=== PATIENT | female | born 1955 | race Caucasian/White ===

== ENCOUNTER 2024-02-21 20:17 | Emergency (ER) | payer MEDICARE, OTHER, SELFPAY ==
[2024-02-21 20:21] VITALS: BP 114/69
[2024-02-21 20:23] VITALS: BP 114/69
[2024-02-21 20:25] VITALS: BMI 23.8
[2024-02-21 20:36] LABS: % Basophils 0.8 % (0-2); % Eosinophils 2.2 % (0-6); % Immature Granulocytes 0.2 % (0-0.5); % Lymphocytes 28.9 % (20.5-51.1); % Neutrophils 60.9 % (42.2-75.2); Absolute Basophils 0.1 10^3/uL (0-0.2); Absolute Eosinophils 0.2 10^3/uL (0-0.7); Absolute Lymphocytes 2.5 10^3/uL (1.2-3.4); Absolute Monocytes 0.6 10^3/uL (0.1-0.6); Absolute Neutrophils 5.2 10^3/uL (1.4-6.5); Hematocrit 37.2 % (37.0-47.0); Hemoglobin 12.6 g/dL (12.0-16.0); Mean Corp Hgb Conc. 33.9 g/dL (33.0-37.0); Mean Corpuscular Hgb 26.7 pg (27.0-31.0); Mean Corpuscular Volume 78.8 fL (81.0-99.0); Mean Platelet Volume 11.1 fL (7.4-10.4); Nucleated Red Blood Cells % 0 %; Platelet Count 196 10^3/uL (130-400); Red Blood Cell Count 4.72 10^6/uL (4.20-5.40); Red Cell Dist. Width 15.1 % (11.5-14.5); White Blood Cell Count 8.5 10^3/uL (4.8-10.8)
[2024-02-21] MEDS: NSS 1000 IV (20:43)
[2024-02-21 21:00] VITALS: BP 114/72
[2024-02-21 21:10] LABS: Blood Urea Nitrogen 21 mg/dl (7-17); Calcium 9.5 mg/dl (8.4-10.2); Carbon Dioxide 25 mmol/L (22-30); Chloride 108 mmol/L (98-107); Estimated Creatinine Clearance 47 ml/min; Glucose 147 mg/dl (70-99); Sodium 139 mmol/L (135-145); eGFR > 60.00
--- NOTE | 2024-02-21 23:07 | ED.GENMED ---
History of Present Illness
General
Chief Complaint: Fainting/Passed Out
Source: patient, spouse and family
Exam Limitations: none
Time Seen by Provider: 02/21/24 20:18
Nursing documentation reviewed up to this point in time: agreed with
History of Present Illness
History of Present Illness:
68-year-old female with history of hypertension and hyperlipidemia presents to the emergency room with her and daughter for evaluation after syncopal episode. Patient was at a green party with friends at home. She was seated in a chair drinking
wine and had a small bite of edible THC gummy. Shortly thereafter she began to feel lightheaded and family says she had a very brief syncopal episode where she became pale and somewhat diaphoretic� says that she may have passed out 'for a
second or 2.' They lowered patient to the ground she did not have any fall or secondary trauma. EMS called to bring her to the hospital. Here in the emergency room patient says she feels well and has no complaints aside from being fatigued. She
denies any associated chest pain, shortness of breath, palpitations. No headache or abdominal/flank pain.
Past History
Past History
ED Past Medical History: Other (Gastritis)
ED Past Surgical History: Cholecystectomy, Gynecological (Tubal ligation) and Other (Bilateral breast surgery, lumpectomy)
Social History
Tobacco: Non-smoker
Alcohol: None
Drug: None
Personal:
Review of Systems
Review of Systems
All Other Systems: ROS reviewed and negative except as documented in HPI and ROS
Constitutional: Reports fatigue; Denies fever or chills
Respiratory: Denies cough or trouble breathing
Cardiac: Reports syncope; Denies chest pain, diaphoresis or palpitations
ABD/GI: Denies abdominal pain, nausea or vomiting
: Denies flank pain
Musculoskeletal: Denies neck pain or back pain
Neurological: Denies dizzy or headache
Phy Exam
Physical Exam
Physical Exam:
General: Awake, alert; no acute distress
Head: Normocephalic, atraumatic
Eyes: Conjunctiva normal, pupils equal round and reactive to light bilaterally, extraocular movements intact
Throat: Airway intact, slightly dry mucous membranes, tongue atraumatic
Neck: Trachea midline, supple without meningismus
Lungs: Clear to auscultation bilaterally, no wheezing, rales, rhonchi
Heart: Regular rate and rhythm, no murmurs, gallops, or rubs
Abd: Soft, non distended, nontender
Neuro: Cranial nerves grossly intact, speech fluid, no gross motor or sensory deficits
Extremities: No edema in extremities, equal pulses in all extremities
Scores
Heart Failure Risk
Heart Failure Risk Score: Not Applicable
Heart Score for Chest Pain Patients
STEMI patient?: Not applicable
Withdrawal Assessment of Alcohol
Withdrawal Assessment Completed?: Not applicable
Course
Orders/Labs/Results
Orders:
Orders
02/21/24 20:22
Electrocardiogram (*1) Urgent
Reason for Study: Syncope
EKG- Treatment ONCE
02/21/24 20:30
Complete Blood Count/With Diff Urgent
02/21/24 20:39
0.9% Sodium Chloride 1000 ml [Nss] 1,000 ml IV BOLUS
02/21/24 20:49
Basic Metabolic Panel Urgent
Abnormal Lab Results
02/21/24 02/21/24
20:30 20:49
MCV 78.8 L fL
(81.0-99.0)
MCH 26.7 L pg
(27.0-31.0)
RDW 15.1 H %
(11.5-14.5)
MPV 11.1 H fL
(7.4-10.4)
Chloride 108 H mmol/L
(98-107)
BUN 21 H mg/dl
(7-17)
Glucose 147 H mg/dl
(70-99)
02/21/24 20:30
02/21/24 20:49
Vital Signs
Initial and Last Documented VS:
Initial Vital Signs
Temp Pulse Resp BP
36.8 C 79 9 114/69
02/21/24 20:21 02/21/24 20:21 02/21/24 20:21 02/21/24 20:21
Last Documented Vital Signs
Temp Pulse Resp BP Pulse Ox
37.1 C 85 21 114/72 100
02/21/24 20:23 02/21/24 22:02 02/21/24 21:15 02/21/24 21:00 02/21/24 21:15
MDM/Problems Addressed
Differential Diagnosis Includes:
Vasovagal syncope, dehydration, drug/alcohol related, seizure less likely clinically (no tongue biting, no tonic-clonic movements, no postictal period)
MDM/Problems Addressed:
68-year-old female presents for evaluation after syncopal episode in the setting of alcohol and THC ingestion. Vitals normal. Exam as above. Check labs including a CBC and a CMP. Check an EKG. Monitor on telemetry. Provide fluids. Reassess
after the above.
Labs reviewed: CBC unremarkable, CMP no clinically significant abnormalities. EKG sinus rhythm with no high-grade AV block, no QTc prolongation, no delta wave, no Brugada. Suspect likely dehydration and alcohol/THC contributed to syncopal event.
She is feeling well here, requesting discharge I think she is stable for discharge at this point in time. Spoke about return precautions all questions answered.
*Pulse Oximetry
Patient hypoxic: no
*EKG
Interpreted by ED Provider?: Yes
Heart Rate: 74
Rate: normal
Rhythm: sinus
[place]: normal axis
Interval: normal interval
QRS Pattern: normal QRS
Ischemia: no ischemia
*Critical Care Note
Total Time (30-74mins, 75-104mins- exclusive of procedures): Not Applicable
Data Reviewed
Source: patient, spouse and family
ED Attending Note
-
Portions of this chart may have been created with voice recognition software.� Occasional wrong word or��sound alike� substitutions may have occurred due to the inherent limitations of voice recognition software.
Discharge Plan
Departure
Patient Disposition: Home (Routine Discharge)
Date of Disposition: 02/21/24
Time of Disposition: 22:24
Patient with high blood pressure during this ER visit?: No
Discharge Problem:
Syncope
Instructions: Syncope (Fainting) (DC)
Prescriptions:
No Action
hydrochlorothiazide 12.5 mg Tablet
12.5 mg PO .WEEKLY
Referrals:
Hamilton Red MD [Family Provider] - Call in 1-3 days for appt
Activity Restrictions/Additional Instructions:
Thank you for visiting the Emergency Department at [facility].
1. Please schedule a follow up appointment as directed. Call first thing tomorrow morning to make an appointment.
2. If indicated, please take your medications as instructed and indicated on discharge paperwork.
3. If any of your symptoms do not improve, or persist, or become more severe within 6-12 hours, please return to the emergency department for further care.
4. Please return to the emergency department if you develop a headache, neck pain/stiffness, fever greater than 100.4F, chest pain, shortness of breath, persistent nausea, vomiting, slurred speech, difficulty walking, numbness/tingling, weakness,
signs of infection or any other symptoms that are worrisome to you.
Please call [phone] if you have any questions.
Interventions
Interventions:
*Risk Screen - Suicide Last Done: 02/21/24 20:23
*General Assessment Last Done: 02/21/24 20:23
*Neglect/Abuse Screening Last Done: 02/21/24 20:28
ED- Fall Risk Assessment Last Done: 02/21/24 22:39
*ED COVID-19 Vaccine History Last Done: 02/21/24 20:28
*Nursing Disposition Last Done: 02/21/24 22:39
ED- Cardiac Assessment Last Done: 02/21/24 20:24
ED- Neurological Assessment Last Done: 02/21/24 20:24
Discharge Date and Time
Discharge Date/Time: 02/21/24 22:39
Print Language: MAORI
== END 2024-02-21 22:39 | disposition home or self-care (01) ==
LOC: EMR 20:17
PROVIDERS: EMERGENCY PHYSICIAN Emergency Medicine; FAMILY PHYSICIAN Family Medicine
DX: R55 Syncope and collapse (principal); R53.83 Other fatigue; I10 Essential (primary) hypertension; E78.5 Hyperlipidemia, unspecified; Z87.19 Personal history of other diseases of the digestive system; Z90.49 Acquired absence of other specified parts of digestive tract; Z88.1 Allergy status to other antibiotic agents
CPT/HCPCS: 99284; 96360; 80048; 85025; 93005

== ENCOUNTER 2024-03-03 09:00 | Emergency (ER) | payer MEDICARE, OTHER, SELFPAY ==
[2024-03-03] VITALS (66 sets, daily range): BP systolic 94–159; BP diastolic 55–91; BMI 23.8
--- NOTE | 2024-03-03 09:14 | ED.GENMED ---
History of Present Illness
<LEAH Maldonado Last Filed: 03/03/24 18:54>
General
Chief Complaint: Fall
Source: patient
Exam Limitations: none
Time Seen by Provider: 03/03/24 09:13
Nursing documentation reviewed up to this point in time: agreed with
History of Present Illness
History of Present Illness:
68-year-old female presents emergency department today following a fall onto an outstretched hand. Patient reports that she was walking her dog when 2 dogs came out of nowhere and attacked her dog. Patient reports that her dog pulled her with the
leash which caused her to fall forward, hitting her head on the car door and falling onto her her right wrist. Patient reports that after the injury, she is able to get up on her own. Patient notes some mild dizziness and headache but denies any
loss of consciousness. Patient notes neck pain following the injury and upper extremity paresthesias. Patient does not take any blood thinners. Patient denies any chest pain or shortness of breath, abdominal pain. Patient denies any pain in her
back or lower extremities. Patient able to walk without difficulty. Patient states that she never made physical contact with the attacking dog, never got bitten.
Past History
<Erin Schulte PA-C - Last Filed: 03/03/24 18:54>
Past History
ED Past Medical History: Other (Gastritis)
ED Past Surgical History: Cholecystectomy, Gynecological (Tubal ligation) and Other (Bilateral breast surgery, lumpectomy)
Social History
Tobacco: Non-smoker
Alcohol: None
Drug: None
Personal:
Review of Systems
<LEAH Maldonado Last Filed: 03/03/24 18:54>
Review of Systems
All Other Systems: ROS reviewed and negative except as documented in HPI and ROS
Phy Exam
<Erin Schulte PA-C - Last Filed: 03/03/24 18:54>
Physical Exam
Physical Exam:
General: Patient is well appearing and in no acute distress; non-toxic
Skin: Warm and dry, scattered abrasion to the bilateral upper extremities with no open lesions. Brisk capillary refill.
Head: Normocephalic, atraumatic. No tenderness to palpation of the facial bones, no areas of ecchymosis.
Eyes: Sclera non-icteric. EOMs intact. PERRLA.
Neck: Mild tenderness to palpation of the cervical spine.
Cardiac: Regular rate. No tenderness to palpation of the external chest wall.
Peripheral Vascular: No lower extremity swelling or edema.
Pulm: Normal respiratory effort
Abdomen: No abdominal tenderness
Musculoskeletal: Visible deformity of the left wrist with overlying swelling and ecchymosis. No tenderness to palpation of the thoracic or lumbar spine.
Neuro: CN II-XII intact, no focal neurologic deficits.
Psychiatric: Appropriate mood and affect.
Course
<LEAH Maldonado Last Filed: 03/03/24 18:54>
Orders/Labs/Results
Orders:
Orders
03/03/24 09:32
CT Cervical Spine W/o Iv Contr Urgent
Comment:
Reason For Exam: neck pain, upper paresthesias following fall
CT Head W/o Iv Contrast Urgent
Comment:
Reason For Exam: headache, dizziness following trauma
CR Wrist - Left Min 3 Views Urgent
Comment:
Reason For Exam: left wrist pain following
03/03/24 09:33
Acetaminophen [Tylenol] 1,000 mg PO NOW STA
03/03/24 09:37
CR Finger(s)/thumb Min 2 Vw Rt Urgent
Comment:
Reason For Exam: right 4th finger pain
03/03/24 10:40
0.9% Sodium Chloride 1000 ml [Nss] 1,000 ml IV BOLUS
Lorazepam [Ativan] 1 mg IV NOW STA
03/03/24 11:44
Propofol [Diprivan] 20 ml .ROUTE .STK-MED
03/03/24 12:08
CR Wrist - Left Min 2 Views Urgent
Reason For Exam: post reduction of left wrist
03/03/24 13:43
Electrocardiogram (*1) Urgent
Reason for Study: Tachycardia
EKG- Treatment ONCE
Vital Signs
Initial and Last Documented VS:
Initial Vital Signs
Temp Pulse Resp BP Pulse Ox
98.1 F 83 18 116/71 98
03/03/24 09:07 03/03/24 09:07 03/03/24 09:07 03/03/24 09:07 03/03/24 09:07
Last Documented Vital Signs
Temp Pulse Resp BP Pulse Ox
97.6 F 73 19 118/64 98
03/03/24 13:29 03/03/24 15:15 03/03/24 15:15 03/03/24 15:15 03/03/24 15:15
<Hamilton Craven, DO - Last Filed: 03/03/24 12:46>
Orders/Labs/Results
Orders:
Orders
03/03/24 09:32
CT Cervical Spine W/o Iv Contr Urgent
Comment:
Reason For Exam: neck pain, upper paresthesias following fall
CT Head W/o Iv Contrast Urgent
Comment:
Reason For Exam: headache, dizziness following trauma
CR Wrist - Left Min 3 Views Urgent
Comment:
Reason For Exam: left wrist pain following
03/03/24 09:33
Acetaminophen [Tylenol] 1,000 mg PO NOW STA
03/03/24 09:37
CR Finger(s)/thumb Min 2 Vw Rt Urgent
Comment:
Reason For Exam: right 4th finger pain
03/03/24 10:40
0.9% Sodium Chloride 1000 ml [Nss] 1,000 ml IV BOLUS
Lorazepam [Ativan] 1 mg IV NOW STA
03/03/24 11:44
Propofol [Diprivan] 20 ml .ROUTE .STK-MED
03/03/24 12:08
CR Wrist - Left Min 2 Views Urgent
Reason For Exam: post reduction of left wrist
03/03/24 13:43
Electrocardiogram (*1) Urgent
Reason for Study: Tachycardia
EKG- Treatment ONCE
Vital Signs
Initial and Last Documented VS:
Initial Vital Signs
Temp Pulse Resp BP Pulse Ox
98.1 F 83 18 116/71 98
03/03/24 09:07 03/03/24 09:07 03/03/24 09:07 03/03/24 09:07 03/03/24 09:07
Last Documented Vital Signs
Temp Pulse Resp BP Pulse Ox
97.6 F 73 19 118/64 98
03/03/24 13:29 03/03/24 15:15 03/03/24 15:15 03/03/24 15:15 03/03/24 15:15
Procedures
michel;Erin Schulte PA-C - Last Filed: 03/03/24 18:54>
Moderate Sedation
ASA Risk Score: Class II
Chart and allergies reviewed: Yes
Consent for anesthesia obtained: Yes
Time out completed (validating right patient & procedure): Yes
Moderate Sedation Start Time(when first medication is given): 12:05
History of difficult intubation: No
Airway free of obstruction: No
Patient has a gag reflex: Yes
Patient is able to open mouth: Yes
Patient has no dentures: Yes
Patient has no loose teeth: Yes
Medication administered by Provider during Moderate Sedation: IV Propofol (mg) (60)
Total dose administered: 60
Time drug administered: 12:05
Moderate Sedation Procedure End Time: 12:19
Joint/Fracture Reduction
Left Wrist:
Indication for procedure:: displaced distal radius fracture
Procedure completed by: Erin Jackson PA-C
Consent form signed: Yes
Injury was: closed
Post reduction exam: stable
Capillary Refill: normal
Normal distal neurovascular exam?: Yes
Peripheral Pulses: brachial (left): 2+ and radial (left): 2+
<Erin Schulte PA-C - Last Filed: 03/03/24 18:54>
MDM/Problems Addressed
Differential Diagnosis Includes:
ddx include distal radius fracture, Colles fracture, cervical muscle strain/sprain, contusion
MDM/Problems Addressed:
Fall:
68-year-old female presents emergency department today following a fall onto an outstretched hand. Patient reports that she was walking her dog when 2 dogs came out of nowhere and attacked her dog. Patient reports that her dog pulled her with the
leash which caused her to fall forward, hitting her head on the car door and falling onto her her right wrist. Patient had CAT scan done of the head and neck which was negative for any fracture of the cervical spine or any acute intracranial
normality. Patient had a wrist x-ray done which showed a displaced distal radius fracture. My attending was notified. Patient had fracture reduced under procedural sedation. Patient tolerated the procedure well. Postreduction films demonstrates
good alignment. Patient was placed in a sugar-tong splint. Prior to discharge, patient's monitor car operator demonstrated tachycardia and was alert being that she had ventricular tachycardia. Patient was asymptomatic this time. My attending
Jacque was alerted. When listing patient and feeling her pulse on exam, her pulse was in the 60s to 70s range. Cardiology was consulted and believe that telemetry readings are likely artifact. Patient has no history of cardiac disease, no history
of arrhythmias, and was completely asymptomatic when this occurred. Patient stable for discharge.
Chronic conditions affecting care:
htn, hlp
Acute Exacerbation and/or Progression of Chronic Illness:
htn, hlp
<Erin Schulte PA-C - Last Filed: 03/03/24 18:54>
*Critical Care Note
Total Time (30-74mins, 75-104mins- exclusive of procedures): Not Applicable
<Erin Schulte PA-C - Last Filed: 03/03/24 18:54>
Update Note
Update Note:
13:55 pm--Patient was put up for discharge. When she went to stand up, she became tachycardia on the monitor. Nurse claims she felt pulse >100, however on our assessment her tactile pulse was 60-70. Rhythm strips attached, episode lasted 10 min. She
was asymptomatic at the time. She has no hx of cardiac disease. She has an initial cardiology evaluation scheduled for later this week to have a coronary artery calcium score done. Attempted to call patient's tractor mechanic did not get response or
call back, left message. [place] [employer] Techn[employer] production foreman consulted. Questionable artifact vs aflutter vs vtach
14:50 pm-- Dr. Castillo production foreman reviewed tele strips and 12 lead ecg. Sent via tiger text. Dr. Castillo believes this to be artifact. Patient stable for discharge, return precautions discussed.
ED Attending Note
<Erin Schulte PA-C - Last Filed: 03/03/24 18:54>
-
Portions of this chart may have been created with voice recognition software.� Occasional wrong word or��sound alike� substitutions may have occurred due to the inherent limitations of voice recognition software.
<Hamilton Craven DO - Last Filed: 03/03/24 12:46>
ED Attending Note
Patient seen and examined by attending physician: Yes
I performed the substantive portion of visit, reviewed & personally made and approve the management plan that is documented in note by myself or JAMES.: Yes
ED Attending Note:
Patient is a 68-year-old [id number] female who presents to the emergency department after striking her head on a car in a falling when her dog yanked her down. Patient also complains of left wrist pain. Patient is neurologically intact.
Patient had CT of head and neck which were unremarkable however the left wrist x-ray shows comminuted fracture and of the distal radius with displacement towards the volar forearm. Neurovascularly intact. Decision was to try to reduce this.
Patient underwent moderate sedation with propofol and had the fracture reduced with traction and dorsiflexion of the wrist. Patient was then splinted with a sugar-tong splint. Follow-up x-rays showed good alignment. Patient requests Dr. Barros.
Discharge Plan
Departure
Patient Disposition: Home (Routine Discharge)
Date of Disposition: 03/03/24
Time of Disposition: 12:50
Patient with high blood pressure during this ER visit?: Yes
Condition: Good
Covid-19: Not Applicable
Discharge Problem:
Displaced fracture of distal end of radius
Instructions: Splint Care ED, Wrist fracture, MODERATE SEDATION ADULT
Prescriptions:
New
oxycodone 5 mg capsule
5 mg PO Q8H PRN (Reason: Pain) Qty: 5 0RF
No Action
hydrochlorothiazide 12.5 mg Tablet
12.5 mg PO .WEEKLY
Referrals:
John Barros MD [Active] - Call in 1-3 days for appt
Rishi Red MD [Family Provider] -
Activity Restrictions/Additional Instructions:
CT of the head and cervical spine was normal. The x-ray of the fingers was normal.
You have a displaced distal radius fracture. Your fracture was reduced and you were placed in a splint. Please do not remove the splint until you are evaluated by the orthopedist. Your splint cannot get wet. Follow-up with the orthopedist,
please call the orthopedist office to schedule an appointment for follow-up. Please see the attached number for follow up.
Please return to the emergency department should you have an acute worsening of your pain, fevers or chills, excessive pallor, loss of sensation in your wrist, or other concerning signs or symptoms.
Interventions
Interventions:
*Risk Screen - Suicide Last Done: 03/03/24 09:20
*General Assessment Last Done: 03/03/24 11:06
*Neglect/Abuse Screening Last Done: 03/03/24 09:20
ED- Fall Risk Assessment Last Done: 03/03/24 11:06
*ED COVID-19 Vaccine History Last Done: 03/03/24 11:06
*Nursing Disposition Last Done: 03/03/24 15:27
ED-Musculoskeletal Assessment Last Done: 03/03/24 11:06
ED- Neurological Assessment Last Done: 03/03/24 11:06
ED-Skin Assessment Last Done: 03/03/24 11:06
Discharge Date and Time
Discharge Date/Time: 03/03/24 15:29
Print Language: ANGUILLAN
[2024-03-03] MEDS: TYLENOL 1000 MG PO (10:00)
--- NOTE | 2024-03-03 11:15 | EDRN ---
the pts daughter came out of the pts room and stated that she wanted an update, Elisa RN spoke to the pts family and updated them, this RN entered the pts room and updated the pts daughter, the pt stated that she needed to go to the bathroom, this
RN placed a LUE sling and the pt was able to ambulate to the bathroom with daughter with no issues, no s/s of distress
[2024-03-03] MEDS: ATIVAN 1 MG IV (11:19)
[2024-03-03] MEDS: NSS 1000 IV (11:19)
--- NOTE | 2024-03-03 11:30 | EDRN ---
this RN entered the pts room to check on the pt and the pt stated that she was comfortable and has no pain currently, the pt is resting in stretcher in the lowest position, side rails up x2, call mcnally within reach, HOB elevated, no s/s of distress,
left arm is resting in pillow, sling was removed, VS WNL, the pts family is currently at the pts bedside, awaiting for provider to come back into the pts room, will continue to monitor the pt closely
--- NOTE | 2024-03-03 11:59 | EDRN ---
Dr. Craven currently at the pts bedside speaking with the pt daughter and the
--- NOTE | 2024-03-03 13:46 | EDRN ---
the pt finished eating and this RN had the pt stand up to walk around to see how the pt tolerating walking, the pt stood at the side of the bed with this RN and the pts heart rate went into the 140-180's, this RN called for help and multiple RN's,
Dr. Santillan, and Monique STOVER came to the pts bedside, pt went into Atrial tachycardia per Dr. Santillan, the pts heart rate went back down to the 60-70's on it's own, the pt is currently still AAO, able to answer questions appropriately and able
to move all extremities, the pt was placed on defibrillator pads as well
--- NOTE | 2024-03-03 13:53 | EDRN ---
the pt is resting in stretcher in the lowest position, side rails up x2, call mcnally within reach, HOB elevated, no s/s of distress, the pt is currently in NSR in the 60's, last BP 124/69 (86), RA Sp02 98%, no c/o SOB, no c/o chest pain, cardiology
will come to see the pt per Dr. Santillan, will continue to monitor the pt closely
--- NOTE | 2024-03-03 15:24 | EDRN ---
Erin STOVER at the pts bedside, the pt ambulated with no issues and heart rhythm was NSR in the 60-70's, no c/o chest pain, no c/o SOB, no c/o lightheadedness or dizziness, no c/o N/V, RAC #20 PIV discontinued and pressure dressing applied,
per the provider the pt is clear to go home, Erin STOVER and this RN at the pts bedside providing discharge instructions to the pt and the pts , the pt and the pts verbally stated that they understood the discharge teaching
== END 2024-03-03 15:29 | disposition home or self-care (01) ==
LOC: EMR 09:00
PROVIDERS: EMERGENCY PHYSICIAN Emergency Medicine; FAMILY PHYSICIAN Internal Medicine
DX: S52.572A Other intraarticular fracture of lower end of left radius, initial encounter for closed fracture (principal); W19.XXXA Unspecified fall, initial encounter; I10 Essential (primary) hypertension; E78.5 Hyperlipidemia, unspecified
CPT/HCPCS: 99285; 25605; 99152; 96374; 96361; 70450; 72125; 73100; 73110; 73140; 93005